=== PATIENT | female | born 1990 | race Caucasian/White ===

== ENCOUNTER 2017-06-09 01:55 | Inpatient (IN) | payer OTHER ==
[2017-06-09 02:39] LABS: Urine Bacteria 1+ (Absent); Urine Bilirubin Negative (Negative); Urine Glucose Negative (Negative); Urine Nitrite Negative (Negative)
[2017-06-09 03:17] LABS: Hematocrit 28 % (35-47); Hemoglobin 9.2 g/dl (12.0-16.0); Mean Corpuscular HGB Conc 33 g/dl (31-36); Mean Corpuscular Hemoglobin 26 pg (27-31); Mean Corpuscular Volume 79 fL (80-97); Mean Platelet Volume 9 um3 (7.4-10.4); Red Cell Distribution Width 15 % (10.5-15); White Blood Count 15.6 10^3/ul (3.5-10.8)
[2017-06-09] MEDS ORDERED: Nalbuphine* 20 MG/ML 1 ML VIAL ONE (07:09)
[2017-06-09] MEDS ORDERED: Promethazine INJ(RESTRICTED)* 25 MG/ML 1 ML VIAL ONE (07:10)
[2017-06-09] MEDS: Promethazine INJ(RESTRICTED)* 25 MG/ML 1 ML VIAL IV PRN ×2 (07:15→20:12)
[2017-06-09] MEDS: Nalbuphine* 20 MG/ML 1 ML VIAL IV PRN ×2 (07:15→20:12)
--- NOTE | 2017-06-09 16:10 | PTEDU ---
Patient Name: CRESENCIO WRIGHT CERSENCIO WRIGHT selected video: BBOB: Nurturing Your Gorgeous \T\Growing Baby by to so ramirez on 06/09/2017 at 4:08:49 PM from [id number]
[2017-06-10] MEDS: Nalbuphine* 20 MG/ML 1 ML VIAL IV PRN (03:31)
[2017-06-10] MEDS: Promethazine INJ(RESTRICTED)* 25 MG/ML 1 ML VIAL IV PRN (03:31)
[2017-06-10] MEDS ORDERED: Oxytocin in LR* 20 UNITS/1,000 ML BAG IVPB SCH ×2 (08:30→15:00)
[2017-06-10] MEDS ORDERED: OBEPIDURAL* 250 ML ONE (10:13)
[2017-06-10] MEDS ORDERED: fentaNYL* 50 MCG/ML 2 ML VIAL (100 MCG VIAL) ONE (10:24)
[2017-06-10] MEDS ORDERED: Phenylephrine IV* 40 MCG/ML 10 ML SYRINGE IV PUSH PRN (10:59)
[2017-06-10] MEDS ORDERED: Sodium Citrate/Citric Acid* 15 ML UDC PO PRN (10:59)
[2017-06-10] MEDS ORDERED: Famotidine TAB* 20 MG PO PRN (10:59)
[2017-06-10] MEDS ORDERED: OBEPIDURAL* 250 ML EPIDURAL SCH (11:00)
[2017-06-10] MEDS: Phenylephrine IV* 40 MCG/ML 10 ML SYRINGE IV PUSH PRN ×2 (11:42→12:07)
[2017-06-10] MEDS ORDERED: Glycerin ADULT SUPP PR PRN (14:45)
[2017-06-10] MEDS ORDERED: Ibuprofen TAB* 600 MG PO PRN (14:45)
[2017-06-10] MEDS ORDERED: Witch Hazel PAD* JAR TOPICAL PRN (14:45)
[2017-06-10] MEDS ORDERED: Acetaminophen TAB* 325 MG PO PRN (14:45)
[2017-06-10] MEDS ORDERED: Dibucaine 1% 28.35 GM TUBE PR PRN (14:45)
[2017-06-10] MEDS ORDERED: Simethicone CHEW TAB* 80 MG PO SCH (17:30)
[2017-06-10] MEDS: Docusate CAP* 100 MG PO SCH (21:45)
--- NOTE | 2017-06-11 07:02 | PTEDU ---
Patient Name: CRESENCIO WRIGHT CRESENCIO WRIGHT selected video: BBOB: Nurturing Your Gorgeous \T\Growing Baby by to so ramirez on 06/11/2017 at 7:00:40 AM from [id number]
[2017-06-11 07:29] LABS: Hematocrit 27 % (35-47); Mean Corpuscular HGB Conc 34 g/dl (31-36); Mean Corpuscular Hemoglobin 27 pg (27-31); Mean Corpuscular Volume 79 fL (80-97); Mean Platelet Volume 9 um3 (7.4-10.4); Red Blood Count 3.37 10^6/ul (4.0-5.4); Red Cell Distribution Width 15 % (10.5-15); White Blood Count 12.4 10^3/ul (3.5-10.8)
--- NOTE | 2017-06-11 07:32 | PTEDU ---
Patient Name: CRESENCIO WRIGHT CRESENCIO WRIGHT selected video: Follow Me Mum: The [place] to Successful to view on 017 at 7:30:47 AM [id number]
--- NOTE | 2017-06-11 08:52 | PTEDU ---
Patient Name: CRESENCIO WRIGHT CRESENCIO WRIGHT selected video: BBOB: Bonding Through Massage to view on 06/11/2017 at 8:50:38 AM from [id number]
[2017-06-11] MEDS: Ferrous Gluconate TAB* 324 MG TAB PO SCH ×2 (09:01→23:21)
[2017-06-11] MEDS: Docusate CAP* 100 MG PO SCH ×3 (09:01→23:21)
[2017-06-12 07:45] VITALS: BP 108/64
--- NOTE | 2017-06-12 08:45 | PTEDU ---
Patient Name: CRESENCIO WRIGHT CRESENCIO WRIGHT selected video: Never Ever Shake a Baby to view on 06/12/2017 at 8:44:23 AM from [facility] [id number]
[2017-06-12] MEDS: Docusate CAP* 100 MG PO SCH (09:52)
[2017-06-12] MEDS: Ferrous Gluconate TAB* 324 MG TAB PO SCH (09:52)
== END 2017-06-12 13:10 | disposition home or self-care (01) | DRG 560 ==
LOC: MCHOBOUT 01:55 → MCHOB 04:06
PROVIDERS: ADMIT Midwife; ATTEND Midwife
PROC: 10E0XZZ Delivery of Products of Conception, External Approach (ICD-10-PCS; principal; 2017-06-10)
PROC: 0KQM0ZZ Repair Perineum Muscle, Open Approach (ICD-10-PCS; 2017-06-10)
DX: O48.0 Post-term pregnancy (principal); D64.9 Anemia, unspecified; O99.824 Streptococcus B carrier state complicating childbirth; O70.1 Second degree perineal laceration during delivery; O63.0 Prolonged first stage (of labor); O90.81 Anemia of the puerperium; Z3A.40 40 weeks gestation of pregnancy; Z37.0 Single live birth
CPT/HCPCS: 36415; 81003; 81015; 85025; 86850; 86900; 86901; 87086; A9270-GY; J2300; J2540; J2550; J3010

== ENCOUNTER 2019-07-12 15:20 | Emergency (ER) | payer SELFPAY ==
[2019-07-12 16:02] VITALS: BP 108/69
--- NOTE | 2019-07-12 16:09 | UC ---
Complaint Female HPI - HPI Summary HPI Summary: 29 yo female c/o several days (since Monday, today is Mon) progressive urine freq /urg / dysuria. No overt hematuria. Unk fever, no chills. No sob /cp. + mid lower abd / pelvic pain (L>R). No flank pain, No cvat. No GI issues. Pt is . - History Of Current Complaint Chief Complaint: UCGU Stated Complaint: UTI Time Seen by Provider: 07/12/19 15:42 Hx Obtained From: Patient Hx Last Menstrual Period: BEGINNING JUN Pain Intensity: 5 - Allergies/Home Medications Allergies/Adverse Reactions: Allergies Allergy/AdvReac Type Severity Reaction Status Date / Time No Known Allergies Allergy Verified 07/12/19 15:59 PMH/Surg Hx/FS Hx/Imm Hx Previously Healthy: Yes - Surgical History Surgical History: Yes Surgery Procedure, Year, and Place: jaw surgery - Family History Known Family History: Positive: Non-Contributory - Social History Alcohol Use: None Substance Use Type: None Smoking Status (MU): Never Smoked Tobacco - Immunization History Most Recent Influenza Vaccination: Unknown Most Recent Pneumonia Vaccination: Unknown Review of Systems All Other Systems Reviewed And Are Negative: Yes Constitutional: Positive: Other - see hpi Skin: Positive: Negative Eyes: Positive: Negative ENT: Positive: Negative Respiratory: Positive: Negative Cardiovascular: Positive: Negative Gastrointestinal: Positive: Other - see hpi Genitourinary: Positive: Other - see hpi. No c/o vag d/c or itching at this time. Motor: Positive: Negative Neurovascular: Positive: Negative Musculoskeletal: Positive: Negative Neurological: Positive: Negative Psychological: Positive: Negative Is Patient Immunocompromised?: No Physical Exam Triage Information Reviewed: Yes Appearance: Well-Appearing, Well-Nourished Vital Signs: Initial Vital Signs Temp 99.3 F 07/12/19 15:59 Pulse 87 07/12/19 15:59 Resp 18 07/12/19 15:59 BP 108/69 07/12/19 15:59 Pulse Ox 100 07/12/19 15:59 Vital Signs Reviewed: Yes Eye Exam: Normal ENT Exam: Normal Neck exam: Normal - no c/o Respiratory Exam: Normal Cardiovascular Exam: Normal Cardiovascular: Positive: RRR, No Murmur, Pulses Normal, Brisk Capillary Refill Abdominal Exam: Other - Tender suprapubic region, over bladder, extends a little to the left. No R/G. No CVAT. No flank tenderness. Musculoskeletal Exam: Normal Neurological Exam: Normal Psychological Exam: Normal Skin Exam: Normal - no visible or reported rash. Complaint Female Dx - Course Course Of Treatment: Reviewed coa / tx plan. Pt is . Reviewed urine dip / ucg with pt. Reviewed recommendation for f/u with pcp, for recheck. To ED if worse. Questions as posed answered to the best of my ability. - Differential Dx/Diagnosis Provider Diagnosis: UTI (urinary tract infection) Discharge ED - Sign-Out/Discharge Documenting (check all that apply): Patient Departure All imaging exams completed and their final reports reviewed: No Studies - Discharge Plan Condition: Stable Disposition: HOME Prescriptions: ceFUROXime 250 MG TAB [Ceftin TAB 250 MG(*)] 500 mg PO BID 10 Days #40 tab Patient Education Materials: Urinary Tract Infection in Women (ED) Referrals: Corazon Holman MD [Primary Care Provider] - Additional Instructions: Hydrate. Please follow up with Dr. Baumann next week for recheck. Please have your urine rechecked for blood when treatment and symptoms are resolved. Seek medical attention for worse or new problems. - Billing Disposition and Condition Condition: STABLE Disposition: Home
--- NOTE | 2019-07-14 07:43 | UC ---
- Progress Note Progress Note: Reviewed cx results. Sensitivities not tested d/t multiple sensitivities. Please call pt to ensure feeling better. Recommend f/u pcp as previously advised. Course/Dx - Diagnoses Provider Diagnoses: UTI (urinary tract infection) Discharge ED - Sign-Out/Discharge Documenting (check all that apply): Post-Discharge Follow Up All imaging exams completed and their final reports reviewed: No Studies - Discharge Plan Condition: Stable Disposition: HOME Prescriptions: ceFUROXime 250 MG TAB [Ceftin TAB 250 MG(*)] 500 mg PO BID 10 Days #40 tab Patient Education Materials: Urinary Tract Infection in Women (ED) Referrals: Corazon Holman MD [Primary Care Provider] - Additional Instructions: Hydrate. Please follow up with Dr. Baumann next week for recheck. Please have your urine rechecked for blood when treatment and symptoms are resolved. Seek medical attention for worse or new problems. - Billing Disposition and Condition Condition: STABLE Disposition: Home
== END 2019-07-12 16:50 | disposition home or self-care (01) ==
LOC: UCEAST 15:20
DX: N39.0 Urinary tract infection, site not specified (principal)
CPT/HCPCS: 81003; 84702; 87077; 87086; 99212; G0463

== ENCOUNTER 2020-04-30 07:01 | Inpatient (IN) ==
[2020-04-30] MEDS ORDERED: Penicillin G Potassium IV 5,000,000 UNITS in NS 0.9% 100 ml BAG 100 ML IVPB ONE (07:14)
[2020-04-30] MEDS ORDERED: Lactated Ringers 1000 ml BAG 1,000 ML IV ONE (07:14)
[2020-04-30 07:49] LABS: ABS Basophils 0.1 10^3/ul (0-0.2); ABS Eosinophils 0.2 10^3/ul (0-0.6); ABS Lymphocytes 3.2 10^3/ul (1.0-4.8); ABS Monocytes 0.8 10^3/ul (0-0.8); ABS Neutrophils 10.3 10^3/ul (1.5-7.7); Eosinophil % 1.4 %; Hematocrit 36 % (35-47); Hemoglobin 12.8 g/dL (12.0-16.0); Mean Corpuscular HGB Conc 35 g/dL (31-36); Mean Corpuscular Hemoglobin 33 pg (27-31); Mean Corpuscular Volume 92 fL (80-97); Mean Platelet Volume 9.3 fL (7.4-10.4); Platelet Count 169 10^3/uL (150-450); Red Blood Count 3.92 10^6 /uL (3.70-4.87); Red Cell Distribution Width 14 % (10-15); White Blood Count 14.5 10^3/uL (3.5-10.8)
[2020-04-30] MEDS ORDERED: Lactated Ringers 1000 ml BAG 1,000 ML IV SCH ×2 (08:00→11:00)
[2020-04-30] MEDS ORDERED: Dibucaine 1% OINT 28.35 GM TUBE ONE (09:49)
[2020-04-30] MEDS ORDERED: Witch Hazel PAD JAR ONE (09:49)
[2020-04-30] MEDS ORDERED: Witch Hazel PAD JAR TOPICAL PRN (10:18)
[2020-04-30] MEDS ORDERED: Glycerin ADULT 2.4 gm SUPP PR PRN (10:18)
[2020-04-30] MEDS ORDERED: Penicillin G Potassium IV 3,000,000 UNITS in NS 0.9% 100 ml BAG 100 ML IVPB SCH (12:00)
[2020-04-30] MEDS: Dibucaine 1% OINT 28.35 GM TUBE PR PRN (17:07)
[2020-04-30] MEDS ORDERED: Lidocaine 1% VIAL 10 MG/ML VIAL ONE (19:39)
[2020-04-30 20:49] LABS: Urine Benzodiazepine Screen None Detected (None Detect); Urine Cannabinoids Screen None Detected (None Detect); Urine Opiates Screen None Detected (None Detect)
[2020-05-01 06:42] LABS: ABS Eosinophils 0.2 10^3/ul (0-0.6); ABS Lymphocytes 2.6 10^3/ul (1.0-4.8); ABS Monocytes 0.9 10^3/ul (0-0.8); ABS Neutrophils 10.8 10^3/ul (1.5-7.7); Eosinophil % 1.1 %; Hematocrit 34 % (35-47); Hemoglobin 11.9 g/dL (12.0-16.0); Lymphocyte % 17.8 %; Mean Corpuscular HGB Conc 35 g/dL (31-36); Mean Corpuscular Hemoglobin 32 pg (27-31); Mean Corpuscular Volume 92 fL (80-97); Mean Platelet Volume 9.5 fL (7.4-10.4); Nucleated Red Blood Cells % 0.1; Platelet Count 190 10^3/uL (150-450); Red Blood Count 3.71 10^6 /uL (3.70-4.87); Red Cell Distribution Width 14 % (10-15); White Blood Count 14.5 10^3/uL (3.5-10.8)
[2020-05-01] MEDS: Dibucaine 1% OINT 28.35 GM TUBE PR PRN (14:45)
[2020-05-02 07:41] VITALS: BP 95/63
== END 2020-05-02 12:40 | disposition home or self-care (01) | DRG 560 ==
LOC: MCHOBOUT 07:01 → MCHOB 07:04
PROVIDERS: ADMIT Midwife; ATTEND Midwife

== ENCOUNTER 2024-03-02 10:22 | Inpatient (IN) ==
[2024-03-02] MEDS: Metoclopramide 5 MG/ML VIAL (10 mg) IV SLOW PU ONE (12:10)
[2024-03-02] MEDS: Lactated Ringers 1000 ml BAG 1,000 ML IV ONE ×2 (12:11)
[2024-03-02] MEDS: Magnesium Sulfate 2 gm BAG 2 GM/50 ML BAG IVPB ONE (12:11)
[2024-03-02 12:40] LABS: ABS Eosinophils 0.1 10^3/uL (0.0-0.5); ABS Lymphocytes 0.7 10^3/uL (1.0-4.8); ABS Monocytes 0.3 10^3/uL (0.0-0.9); ABS Neutrophils 4.6 10^3/uL (1.5-7.6); Eosinophil % 1.5 %; Hematocrit 39.9 % (35-45); Hemoglobin 13.7 g/dL (11.5-14.3); Lymphocyte % 12.2 %; Mean Corpuscular Hemoglobin 29.5 pg (27-33); Mean Corpuscular Hgb Conc 34.3 g/dL (31-36); Mean Corpuscular Volume 85.8 fL (80-97); Mean Platelet Volume 8.2 fL (7.5-11.2); Nucleated Red Blood Cells % 0.1 %/100WBC (0.0-0.8); Platelet Count 153 10^3/uL (150-450); Red Blood Count 4.65 10^6/uL (3.63-4.92); Red Cell Distribution Width 13.7 % (12-17); White Blood Count 5.8 10^3/uL (3.8-11.8)
[2024-03-02 13:01] LABS: ALT 42 U/L (7-52); AST 41 U/L (13-39); Albumin 4.1 g/dL (3.2-5.2); Albumin/Globulin Ratio 1.6 (1-3); Alkaline Phosphatase 72 U/L (35-149); Anion Gap 10 mmol/L (2-16); Blood Urea Nitrogen 10 mg/dL (6-24); C Reactive Protein 89.62 mg/L (<8.01); CO2 Carbon Dioxide 24 mmol/L (22-32); Calcium 8.7 mg/dL (8.6-10.3); Chloride 103 mmol/L (101-111); Creatinine, Serum 0.92 mg/dL (0.51-0.95); Globulin 2.6 g/dL (2-4); Glucose 99 mg/dL (70-100); Potassium 3.6 mmol/L (3.5-5.0); Sodium 137 mmol/L (135-145); Total Bilirubin 0.6 mg/dL (0.2-1.0); Total Protein 6.7 g/dL (6.4-8.9); eGFR CKD-EPI 83.3 (>60)
[2024-03-02 13:07] LABS: HCG Pregnancy < 0.60 mIU/mL
[2024-03-02 13:32] LABS: Urine Appearance Turbid; Urine Bilirubin Negative (Negative); Urine Blood Negative (Negative); Urine Color Yellow; Urine Glucose Negative (Negative); Urine Ketones Negative (Negative); Urine Nitrite Negative (Negative); Urine Protein Negative (Negative); Urine Specific Gravity 1.005 (1.002-1.030); Urine Urobilinogen Negative (Negative)
[2024-03-02 13:45] LABS: Urine Bacteria 3+ /HPF (Absent); Urine Red Blood Cell 1+(3-5/hpf) /HPF (0-Trace); Urine Squamous Epithelial Cell Present /HPF (Absent); Urine White Blood Cell 1+(6-10/hpf) /HPF (0-Trace)
[2024-03-02] MEDS: Iohexol 300 (CONTRAST) 10 ML SDV IV ONE (13:56)
[2024-03-02 14:41] LABS: RBC Parasite Smear No Parasites Seen (No Parasite)
[2024-03-02] MEDS ORDERED: cefTRIAXone 2 GM ADDV.VIAL 2 GM in NS 0.9% 100 ml BAG 100 ML IV ONE (15:45)
[2024-03-02] MEDS: cefTRIAXone 2 gm/50 mL D5W 2 GM/50 ML BAG IV ONE (16:27)
[2024-03-02] MEDS ORDERED: Metoclopramide 5 MG/ML VIAL (10 mg) IV PRN (16:43)
[2024-03-02] MEDS: Lactated Ringers 1000 ml BAG 1,000 ML IV SCH (18:21)
[2024-03-02] MEDS: Acyclovir IV 500 MG/10 ML VIAL IVPB SCH (18:21)
[2024-03-02] MEDS: Acetaminophen IV 1 GM/100ML 1,000 MG/100 ML BAG IV PRN (23:23)
[2024-03-03] MEDS: cefTRIAXone 2 gm/50 mL D5W 2 GM/50 ML BAG IV SCH ×2 (05:05→05:13)
[2024-03-03] MEDS: Morphine 2 MG/ML SYRINGE IV ONE (05:48)
[2024-03-03 06:53] LABS: ABS Eosinophils 0.1 10^3/uL (0.0-0.5); ABS Lymphocytes 0.6 10^3/uL (1.0-4.8); ABS Monocytes 0.2 10^3/uL (0.0-0.9); ABS Neutrophils 4.9 10^3/uL (1.5-7.6); ABS Nucleated RBC 0.01 10^3/ul; Eosinophil % 2.1 %; Hemoglobin 11.8 g/dL (11.5-14.3); Lymphocyte % 10.5 %; Mean Corpuscular Hemoglobin 29.5 pg (27-33); Mean Corpuscular Hgb Conc 34.6 g/dL (31-36); Mean Corpuscular Volume 85.3 fL (80-97); Mean Platelet Volume 7.6 fL (7.5-11.2); Nucleated Red Blood Cells % 0.2 %/100WBC (0.0-0.8); Platelet Count 150 10^3/uL (150-450); Red Blood Count 3.98 10^6/uL (3.63-4.92); Red Cell Distribution Width 13.4 % (12-17); White Blood Count 5.8 10^3/uL (3.8-11.8)
[2024-03-03 07:24] LABS: ALT 172 U/L (7-52); AST 207 U/L (13-39); Albumin 3.3 g/dL (3.2-5.2); Albumin/Globulin Ratio 1.4 (1-3); Alkaline Phosphatase 145 U/L (35-149); Anion Gap 8 mmol/L (2-16); Blood Urea Nitrogen 7 mg/dL (6-24); C Reactive Protein 102.49 mg/L (<8.01); CO2 Carbon Dioxide 26 mmol/L (22-32); Calcium 7.8 mg/dL (8.6-10.3); Chloride 104 mmol/L (101-111); Creatinine, Serum 0.89 mg/dL (0.51-0.95); Globulin 2.3 g/dL (2-4); Glucose 102 mg/dL (70-100); Potassium 4.1 mmol/L (3.5-5.0); Sodium 138 mmol/L (135-145); Total Bilirubin 0.3 mg/dL (0.2-1.0); Total Protein 5.6 g/dL (6.4-8.9); eGFR CKD-EPI 86.7 (>60)
[2024-03-03 10:33] LABS: Acetaminophen < 15 mcg/mL
[2024-03-03] MEDS ORDERED: Morphine 2 MG/ML SYRINGE IV PRN (15:02)
[2024-03-03] MEDS: Enoxaparin 40 MG/0.4 ML SYR SUBCUT SCH (18:04)
[2024-03-04 07:16] LABS: Urine Appearance Clear; Urine Bilirubin Negative (Negative); Urine Blood Negative (Negative); Urine Color Light-Yellow; Urine Glucose Negative (Negative); Urine Ketones Negative (Negative); Urine Nitrite Negative (Negative); Urine Protein Negative (Negative); Urine Specific Gravity 1.012 (1.002-1.030); Urine Urobilinogen Negative (Negative)
[2024-03-04 07:25] LABS: Albumin 3.7 g/dL (3.2-5.2); Albumin/Globulin Ratio 1.3 (1-3); Calcium 8.6 mg/dL (8.6-10.3); Creatinine, Serum 0.9 mg/dL (0.51-0.95); Globulin 2.8 g/dL (2-4); Potassium 4.2 mmol/L (3.5-5.0); Total Bilirubin 0.3 mg/dL (0.2-1.0); Total Protein 6.5 g/dL (6.4-8.9); eGFR CKD-EPI 85.5 (>60)
[2024-03-04] MEDS: Gadoteridol (CONTRAST) 279.3 MG/ML 10 ML IV ONE (09:42)
[2024-03-04 10:29] VITALS: BP 116/71
[2024-03-05 16:16] LABS: Anaplasma phagocytophilum Negative (Negative); B. miyamotoi PCR, B Negative (Negative); Babesia divergens/MO-1 Negative (Negative); Babesia ducani Negative (Negative); Ehrlichia chaffeensis Negative (Negative); Ehrlichia ewingii/canis Negative (Negative); Ehrlichia muris eauclairensis Negative (Negative)
[2024-03-05 21:27] LABS: Hepatitis B Surface Antigen Nonreactive (Nonreactive)
[2024-03-05 21:33] LABS: Hepatitis A Ab IgM Negative (Negative)
[2024-03-05 21:44] LABS: Hepatitis B Surface Ab Immune (Immune); Hepatitis C Antibody Negative (Negative)
[2024-03-06 05:08] LABS: Hepatitis B Core IgM Nonreactive (Nonreactive)
[2024-03-06 15:29] LABS: Cytomegalovirus IgG Antibody Positive (Negative)
[2024-03-06 15:57] LABS: IgG Immunoblot Positive (Negative); IgM Immunoblot Positive (Negative)
== END 2024-03-04 13:50 | disposition home or self-care (01) | DRG 724 ==
LOC: EDHOLD 10:22 → ED 10:22 → SUATTDRO 16:40 → MED 20:46 → SUATTDRO 03-03 08:00
PROVIDERS: ADMIT Internal Medicine; ATTEND Internal Medicine